=== PATIENT | female | born 1940 | race American Indian/Alaskan Native ===

== ENCOUNTER 2018-03-07 00:09 | Day surgery (SDC) | payer MEDICARE ==
[~2018-03-07 00:09] MED LIST: BABY ASPIRIN ONE; HEPARIN 10,000 UNITS/10 ML ONE; NACL 0.9% 1000 ML ONE; PLAVIX ONE
[2018-03-07] MEDS ORDERED: NACL 0.9% 1000 ML 1,000 ML IV ONE ×2 (00:11→00:22)
[2018-03-07] MEDS ORDERED: HEPARIN 10,000 UNITS/10 ML IV ONE ×2 (00:11→00:19)
[2018-03-07] MEDS: BABY ASPIRIN PO ONE ×2 (00:14→00:24)
--- NOTE | 2018-03-07 00:17 | Emergency Department Report ---
ED General Adult HPI - General Chief complaint: Chest Pain Stated complaint: STEMI Time Seen by Provider: 03/07/18 00:11 Source: patient, EMS Mode of arrival: Stretcher Limitations: Other - History of Present Illness Initial comments: Patient is a 78-year-old asthmatic female past medical history of hypertension and kidney disease and diabetes who is presenting with shortness of breath. 911 was alerted because of several hours of shortness of breath worse with exertion. Patient is denying any chest pain she does have some diaphoresis. Patient was not feeling well and is a poor historian at this time. - Related Data Allergies Allergy/AdvReac Type Severity Reaction Status Date / Time tetracycline AdvReac Rash Verified 03/07/18 00:13 ED Review of Systems ROS: Stated complaint: STEMI Other details as noted in HPI Comment: All other systems reviewed and negative ED Past Medical Hx - Past Medical History Previous Medical History?: Yes Hx Hypertension: Yes Hx Renal Disease: Yes ED Physical Exam - General Limitations: Other General appearance: alert, in no apparent distress - Head Head exam: Present: atraumatic, normocephalic - Eye Eye exam: Present: normal appearance - ENT ENT exam: Present: mucous membranes moist - Neck Neck exam: Present: normal inspection - Respiratory Respiratory exam: Present: normal lung sounds bilaterally, rales. Absent: respiratory distress, wheezes, rhonchi - Cardiovascular Cardiovascular Exam: Present: regular rate, normal rhythm. Absent: systolic murmur, diastolic murmur, rubs, gallop - GI/Abdominal GI/Abdominal exam: Present: soft, distended, normal bowel sounds. Absent: tenderness, guarding, rebound - Extremities Exam Extremities exam: Present: normal inspection - Back Exam Back exam: Present: normal inspection - Neurological Exam Neurological exam: Present: alert, oriented X3 - Psychiatric Psychiatric exam: Present: normal affect, normal mood - Skin Skin exam: Present: warm, dry, intact, normal color. Absent: rash ED Medical Decision Making - EKG Data -: EKG Interpreted by Me - EKG Data Interpretation: other (EKG shows sinus rhythm at 62 with axis is leftward intervals are normal there is ST elevation in the inferior and lateral leads with ST depression in V1 and V2. This is consistent with a STEMI.) - Medical Decision Making Patient is having EKG changes consistent with a STEMI. Patient does look ill appearing has some shortness of breath and clammy skin. Dr. Irwin with cardiology is benign consult is alerted. Lab has been activated. Patient was given a bolus of heparin and Plavix aspirin and was started on dopamine for a slightly low blood pressure. Patient's systolic blood pressure is 90. Critical care attestation.: If time is entered above; I have spent that time in minutes in the direct care of this critically ill patient, excluding procedure time. ED Disposition Clinical Impression: STEMI (ST elevation myocardial infarction) Qualifiers: Involved coronary artery: unspecified coronary artery Qualified Code(s): I21.3 - ST elevation (STEMI) myocardial infarction of unspecified site Disposition: [id number] OP ADMIT IP TO THIS HOSP Is pt being admited?: Yes Does the pt Need Aspirin: No Condition: Critical
[2018-03-07] MEDS ORDERED: PLAVIX PO ONE (00:20)
[2018-03-07] MEDS: INTROPIN DRIP 800 MG/D5W 250 ML 800 MG/250 ML BAG IV ONE ×2 (00:35→00:55)
[2018-03-07] MEDS ORDERED: NITROGLYCERIN SYRINGE 0 ML ONE (00:40)
[2018-03-07] MEDS ORDERED: HEPARIN 10,000 UNITS/10 ML ONE (00:40)
[2018-03-07] MEDS ORDERED: HEPARIN/NS 5000 UNIT/500ML(CATH LAB) 1,000 ML IR ONE (00:40)
[2018-03-07] MEDS ORDERED: XYLOCAINE 2% INFILTRATI ONE (00:40)
[2018-03-07] MEDS ORDERED: CALAN ONE (00:40)
[2018-03-07 00:41] LABS: Basophils # (Auto) 0.1 K/mm3 (0.0-0.1); Basophils % (Auto) 0.5 % (0.0-1.8); Hematocrit 28.3 % (30.3-42.9); Hemoglobin 8.9 gm/dl (10.1-14.3); Lymphocytes # (Auto) 1.4 K/mm3 (1.2-5.4); Lymphocytes % (Auto) 7.7 % (13.4-35.0); Mean Corpuscular HGB Conc 31 % (30-34); Mean Corpuscular Volume 80 fl (79-97); Monocytes # (Auto) 1.3 K/mm3 (0.0-0.8); Monocytes % (Auto) 6.7 % (0.0-7.3); Platelet Count 285 K/mm3 (140-440); Red Blood Count 3.53 M/mm3 (3.65-5.03); Red Cell Distribution Width 15.1 % (13.2-15.2)
[2018-03-07] MEDS ORDERED: NACL 0.9% 1000 ML 0 ML ONE (00:42)
[2018-03-07] MEDS ORDERED: SUBLIMAZE ONE (00:42)
[2018-03-07] MEDS ORDERED: ATROPINE 0.1% (CARDIAC) ONE ×4 (00:42→15:23)
[2018-03-07] MEDS ORDERED: DOBUTREX DRIP 500MG/D5W 250ML 500 MG/250 ML BAG IV ONE (00:49)
[2018-03-07 00:56] LABS: Mean Corpuscular Hemoglobin 25 pg (28-32)
[2018-03-07 00:58] LABS: Creatine Kinase MB 29.6 ng/mL (0.0-4.0); INR 1.1 (0.87-1.13); Partial Thromboplastin Time 23.5 Sec. (24.2-36.6)
[2018-03-07 00:59] LABS: Calcium 8.2 mg/dL (8.4-10.2)
[2018-03-07] MEDS ORDERED: LEVOPHED IV ONE (01:07)
[2018-03-07] MEDS ORDERED: NACL 0.9% 250ML 250 ML ONE (01:07)
[2018-03-07] MEDS ORDERED: SODIUM BICARBONATE IV ONE ×4 (01:38→15:23)
[2018-03-07] MEDS ORDERED: VERSED IV ONE (01:45)
[2018-03-07] MEDS ORDERED: Vasostrict 20 UNIT in NACL 0.9% 100 ML IV ONE (02:00)
[2018-03-07 02:05] VITALS: BP 86/48
[2018-03-07 02:49] LABS: Chol/HDL Ratio 4.08 %
--- NOTE | 2018-03-07 02:49 | XRay Report ---
FINAL REPORT PROCEDURE: XR CHEST 1V AP TECHNIQUE: Chest radiograph anteroposterior view. CPT 41434 HISTORY: chest pain COMPARISON: No prior studies are available for comparison. FINDINGS: Heart: Heart is borderline enlarged Mediastinum/Vessels: Normal. Lungs/Pleural space: There is suboptimal inspiration. There is atelectasis at the lung bases. There are no infiltrates, effusions or pneumothoraces.. Bony thorax: No acute osseous abnormality. Life support devices: None. IMPRESSION: No acute cardiopulmonary abnormality.
--- NOTE | 2018-03-07 04:24 | Cardiac Catherization Report ---
INDICATION FOR PROCEDURE: The patient is a pleasant 78-year-old female who presents with multiple medical problems, inferior ST elevation complicated by bradycardia and hypotension. PROCEDURE IN DETAIL: The patient was brought to the catheterization lab in a postabsorptive state, prepped in a sterile fashion, 8 mL of 2% lidocaine used to anesthetize the right groin. A standard 6 [place] sheath was used to cannulate the right common femoral artery and the right femoral vein via modified Seldinger technique. A standard balloon tipped pacemaker was placed under fluoroscopic guidance into the apex of the right ventricle. Baseline pacing was successful at a backup rate of 60 beats per minute. At this point, we turned attention to cardiac catheterization. A JL4 catheter used at left main. No dampening or vegetation. Cineangiography performed in all projections. The left system has mod diffuse non-obstructive disease with deion 3 flow throughout. Next, we used a JR4 guide to engage the right coronary. The right coronary is flush occluded at the very proximal segment. At this point, the patient is lucid and conversant. The patient already been given IV heparin, Plavix and aspirin. Further heparin was given. Abnormal ACT is confirmed. The patient with known chronic kidney disease. Next, I used 2 Columbia wire across the lesion without difficulty. It is a very tortuous lesion, heavy thrombus burden. I used a 2.5 balloon to predilate the entire lesion heavy thrombus burden, but again very tortuous DEION 1 to DEION 2 flow. The patient's chest pain is improving at this point. Next, I used an Gerton catheter and multiple passes for thrombectomy were made at this point. DEION 3 flow is improved; however, at this point, the patient had respiratory decompensation, developed rapid shallow breathing and a decreased level of mentation. Code was called. Code team and anesthesiologist were at bedside promptly. The patient was watched closely and intubated while we completed the PCI. Two bare metal stents were placed in the mid and proximal right coronary, a 3.0 x 26 Integrity stents in overlapping fashion. Good angiographic result, DEION 3 flow in the right coronary. However, the patient after intubation developed PEA arrest and chest compressions were initiated, loss of blood pressure. ACLS protocol followed closely. During chest compressions, I confirmed that there is no coronary complication and the right coronary stents were patent. There is actually normal flow and the lumen appears to be uncompromised. At this point, the patient's ACLS protocol was followed very closely. At least one hour of critical care time was spent. We attempted to revive the patient and unfortunately we were unsuccessful. The patient was declared at 2:15 a.m. despite our best efforts. In my discussion with multiple family members afterwards, I was informed that Mrs. Sosa has actually been having ongoing severe cp for 3-4 days prior to arrival. Thus, this is a very late presentation inferior NC complicated by hypotension/bradycardia (RV involvement). I spent time discussing my results and the findings and the final outcome with the family. We will provide them with any support necessary. JOB# [id number] DRAKE/LUANN CARRERO
[2018-03-07] MEDS ORDERED: D50W (25GM) Syringe IV ONE (15:22)
[2018-03-07] MEDS ORDERED: ADRENALIN ONE (15:22)
--- NOTE | 2018-03-07 21:35 | Consultation ---
CARDIOLOGY CONSULTATION REFERRING PHYSICIAN: ER physician. REASON FOR CONSULTATION: Advice regarding chest pain, ST elevation myocardial infarction on EKG. HISTORY OF PRESENT ILLNESS: The patient is a very pleasant 78-year-old -[place] female who had 2 hours of chest pain at home, brought to the Emergency Room, found to have inferior ST elevation and bradycardia. She has a history of asthma, hypertension, chronic kidney disease, diabetes. PRIMARY CARE PHYSICIAN: Dr. Mohamud Whitaker. ALLERGIES: Allergic to TETRACYCLINE. She has 10/10 chest pain on arrival, she is hypotensive and ashen, started on dopamine. PAST MEDICAL HISTORY: As aforementioned. REVIEW OF SYSTEMS: Positive for chest pain, fatigue, nausea. PHYSICAL EXAMINATION: VITAL SIGNS: Blood pressure is 87/40 in the Emergency Room, she is sinus bradycardia. HEENT: Sclerae are anicteric. PERRLA. NECK: Supple. No mass or JVD. CHEST: Clear to auscultation bilaterally. Good air movement. CARDIOVASCULAR: Regular rate and rhythm, S1, S2. ABDOMEN: Soft, nontender, nondistended. Normoactive bowel sounds in 4 quadrants. No mass or bruits. EXTREMITIES: No cyanosis, clubbing, or edema. Good peripheral pulses. SKIN: Intact. No rashes. IMAGING DATA: EKG reveals inferior ST elevation, sinus bradycardia. ASSESSMENT: The patient is a pleasant 78-year-old female with multiple risk factors who presents here with inferior ST elevation complicated by bradycardia and hypotension, likely RV involvement, recommended urgent left heart catheterization. The patient loaded with aspirin, Plavix and heparin. Further plan is contingent on left heart catheterization. JOB# [id number] SBM/NTS
== END 2018-03-07 01:47 | disposition home or self-care (01) ==
LOC: ED 00:09 → CATH 01:46
PROVIDERS: ATTEND Emergency Medicine
DX: I21.19 ST elevation (STEMI) myocardial infarction involving other coronary artery of inferior wall (principal); I12.9 Hypertensive chronic kidney disease with stage 1 through stage 4 chronic kidney disease, or unspecified chronic kidney disease; E11.22 Type 2 diabetes mellitus with diabetic chronic kidney disease; N18.9 Chronic kidney disease, unspecified; J45.909 Unspecified asthma, uncomplicated; Z88.1 Allergy status to other antibiotic agents
CPT/HCPCS: 33210; 36415; 71045; 80048; 80061; 82550; 82553; 84484; 85025; 85347; 85610; 85730; 86850; 86900; 86901; 92941; 93005; 93010; 93454; 99285; C1725; C1757; C1769; C1876; C1887; C1894; J0171; J0461; J1250; J1265; J1644; J2250; J7030; J7050; J3010; Q9967